=== PATIENT | female | born 1995 | race Caucasian/White ===

== ENCOUNTER 2019-12-11 19:48 | Emergency (ER) | payer BC ==
[2019-12-11] MEDS ORDERED: Metoclopramide 10 MG/2 ML SDV IVPUSH ONE (20:49)
[2019-12-11] MEDS ORDERED: Loperamide 2 MG Cap PO ONE (21:00)
[2019-12-11] MEDS ORDERED: Sodium Chloride 0.9% 1,000 ML IV SCH (21:00)
[2019-12-11] MEDS ORDERED: Dicyclomine 10 MG Cap PO ONE (21:06)
--- NOTE | 2019-12-11 21:24 | EDM.PDOC ---
ED HPI GENERAL MEDICAL PROBLEM - General Chief Complaint: Abdominal Pain Stated Complaint: STOMACH CRAMPS Time Seen by Provider: 12/11/19 20:48 Source of Information: Reports: Patient, RN Notes Reviewed History Limitations: Reports: No Limitations - History of Present Illness INITIAL COMMENTS - FREE TEXT/NARRATIVE: Patient is a 24-year-old female who presents to the ED for her abdomen cramping. Patient states that she has been having diarrhea for about 2 weeks, she states that her whole family seems to have gotten a "stomach bug", and everyone else seem to be getting better, but this has stuck around with her. She is not complaining of any fevers or chills, cough or shortness of breath, any nausea or vomiting. Patient notes she is having intermittent abdomen cramps due to the amount of diarrhea she has been having, and it does seem to radiate into her back. She has been using Pepto-Bismol for this, but nothing seems to really be doing much. She is denying any urinary issues like dysuria, frequency or urgency, she denies any chance of . Her primary care provider is Timothy John. She states however she has not seen him for any issues, and notes t his is their family provider. Patient has a mild temperature at the time of triage, 99.2 F, but otherwise feels fine. She is requesting something just for the abdomen cramps and to help the diarrhea stop. Lower Abdomen Pain Score (Numeric/FACES): 3 - Related Data Allergies Allergy/AdvReac Type Severity Reaction Status Date / Time No Known Allergies Allergy Verified 12/11/19 20:20 Home Meds: Home Meds Dicyclomine [Bentyl] 20 mg PO TID #15 tab 12/11/19 [Rx] Past Medical History - Past Health History Medical/Surgical History: Denies Medical/Surgical History Social & Family History - Tobacco Use Smoking Status *Q: Never Smoker - Caffeine Use Caffeine Use: Reports: None - Recreational Drug Use Recreational Drug Use: No ED ROS GENERAL - Review of Systems Review Of Systems: Comprehensive ROS is negative, except as noted in HPI. ED EXAM, GI/ABD - Physical Exam Exam: See Below Exam Limited By: No Limitations General Appearance: Alert, WD/WN, No Apparent Distress Eyes: Bilateral: Normal Appearance Respiratory/Chest: No Respiratory Distress, Lungs Clear, Normal Breath Sounds, No Accessory Muscle Use, Chest Non-Tender Cardiovascular: Normal Peripheral Pulses, Regular Rate, Rhythm, No Murmur GI/Abdominal Exam: Normal Bowel Sounds, Soft, Non-Tender, No Distention, No Mass Extremities: Normal Inspection, Normal Capillary Refill Neurological: Alert, Oriented, Normal Cognition, No Motor/Sensory Deficits Psychiatric: Normal Affect, Normal Mood Skin Exam: Warm, Dry, Intact, Normal Color, No Rash Course - Vital Signs Last Recorded V/S: Last Vital Signs Temp 99.2 F 12/11/19 20:16 Pulse 81 12/11/19 20:16 Resp 18 12/11/19 20:16 BP 129/76 12/11/19 20:16 Pulse Ox 98 12/11/19 20:16 - Orders/Labs/Meds Orders: Active Orders 24 hr Category Date Time Status Abdomen Pelvis w Cont [CT] Stat Exams 12/11/19 20:48 Stop Req Meds: Medications Discontinued Medications Generic Name Dose Route Start Last Admin Trade Name Freq PRN Reason Stop Dose Admin Dicyclomine HCl 20 mg 12/11/19 21:06 12/11/19 21:23 Bentyl PO 12/11/19 21:07 20 mg ONETIME ONE Administration Sodium Chloride 1,000 mls @ 999 mls/hr 12/11/19 21:00 Normal Saline IV ASDIRECTED ROLA Loperamide HCl 4 mg 12/11/19 21:00 12/11/19 21:22 Imodium PO 12/11/19 21:01 4 mg ONETIME ONE Administration Metoclopramide HCl 10 mg 12/11/19 20:49 Reglan IVPUSH 12/11/19 20:50 ONETIME ONE - Re-Assessments/Exams Free Text/Narrative Re-Assessment/Exam: 12/11/19 21:06 Patient presents to the ED for evaluation of her abdomen cramping and diarrhea. She is not wanting any laboratory evaluation or imaging done, she is requesting just some medication to help her start feeling a lot better. Have ordered 4 mg loperamide to help the diarrhea. We could get her a prescription for dicyclomine for the abdomen cramps. 12/11/19 21:47 Patient is reporting some relief of her symptoms. She will be given a prescription for dicyclomine, and be given general recommendations and discharged home. Departure - Departure Time of Disposition: 21:48 Disposition: Home, Self-Care 01 Condition: Good Clinical Impression: Abdominal cramping Diarrhea Qualifiers: Diarrhea type: unspecified type Qualified Code(s): R19.7 - Diarrhea, unspecified - Discharge Information *PRESCRIPTION DRUG MONITORING PROGRAM REVIEWED*: No *COPY OF PRESCRIPTION DRUG MONITORING REPORT IN PATIENT PAULY: No Prescriptions: Dicyclomine [Bentyl] 20 mg PO TID #15 tab Instructions: Food Choices to Help Relieve Diarrhea, Adult Referrals: Timothy Schneider MD [Primary Care Provider] - Forms: ED Department Discharge Additional Instructions: You have been evaluated in the ED for diarrhea/abdomen cramps. It is likely that this is caused from a viral gastroenteritis. You have received an anti-diarrheal medication, along with a medication for your abdomen cramping. The antidiarrheal medication was called loperamide, or Lomotil, please take 2 mg after every loose stool while you are still having loose stools, do not exceed over 8 doses (or 16 mg) in a 24 hour time span. The medication for your abdomen cramping is called dicyclomine or Bentyl, please use 1 tab 3 times a day as needed for further abdomen cramping. Over the next 24-48 hours please try to limit diet to clear liquids and advance as tolerate to a bland diet to alleviate symptoms of diarrhea. Recommend you get a follow-up appointment with your primary care provider, Dr. John, sometime this week to make sure that your symptoms are getting better as expected. Please return to the ED if your symptoms should change or worsen. Sepsis Event Note (ED) - Evaluation Sepsis Screening Result: No Definite Risk - Focused Exam Vital Signs: Vital Signs Temp Pulse Resp BP Pulse Ox 12/11/19 20:16 99.2 F 81 18 129/76 98 - My Orders Last 24 Hours: My Active Orders 12/11/19 20:48 Abdomen Pelvis w Cont [CT] Stat - Assessment/Plan Last 24 Hours: My Active Orders 12/11/19 20:48 Abdomen Pelvis w Cont [CT] Stat
== END 2019-12-11 21:59 | disposition home or self-care (01) ==
LOC: JD.ED 19:48
DX: R10.30 Lower abdominal pain, unspecified (principal); R19.7 Diarrhea, unspecified
CPT/HCPCS: 99283; A9270